=== PATIENT | male | born 1980 | race Caucasian/White ===

== ENCOUNTER 2020-08-15 08:24 | Outpatient (CLI) | payer BC, OTHER | END 2020-08-15 23:59 | disposition home or self-care (01) | LOC: CVU 08:24 | PROVIDERS: ATTEND Internal Medicine Cardiovascular Disease | DX: I08.8 Other rheumatic multiple valve diseases (principal); I71.9 Aortic aneurysm of unspecified site, without rupture | CPT/HCPCS: 93306; 93356 ==